=== PATIENT | female | born 1995 | race Caucasian/White ===

== ENCOUNTER 2018-12-29 05:45 | Emergency (ER) | payer BC ==
--- OUTSIDE RECORDS SUMMARY | 2018-12-29 05:47 | XMS REPORT ---
:1995 [facility] [address] [place] [address] Care Team Providers Name Role Phone Unavailable Unavailable Unavailable Problems This patient has no known problems. Allergies, Adverse Reactions, Alerts This patient has no known allergies or adverse reactions. Medications This patient has no known medications.
[2018-12-29] MEDS ORDERED: PROMETHAZINE 25 MG/ML VIAL ONE (06:31)
[2018-12-29] MEDS ORDERED: NA CHLORIDE 0.9% 1,000 ML ONE ×2 (06:31→07:25)
[2018-12-29 06:53] LABS: Absolute Lymphocytes (CBC) 1.4 K/uL (0.7-4.9); Absolute Monocytes 1.3 K/uL (0.1-1.3); Basophils % 0.2 % (0-1.3); Eosinophils % 2.1 % (0-4.4); Hematocrit 43.1 % (36.0-45.0); Lymphocytes % 8.2 % (15.3-44.8); MPV 7.9 fL (7.6-11.3); Monocytes % 7.6 % (3.3-12.3); RBC Red Blood Cell Count 4.81 M/uL (3.86-4.86)
[2018-12-29 07:01] LABS: Bilirubin Direct 0.1 mg/dL (0-0.2); Bilirubin Total 0.6 mg/dL (0.2-1.0); Potassium 3.9 mmol/L (3.5-5.1); Protein, Total 7.6 g/dL (6.4-8.2)
[2018-12-29] MEDS ORDERED: ONDANSETRON 4 MG/2 ML VIAL ONE (07:25)
[2018-12-29] MEDS ORDERED: KETOROLAC 30 MG/ML INJ ONE (07:25)
--- NOTE | 2018-12-29 08:11 | RAD REPORT ---
EXAM DESCRIPTION: US - Abdomen Exam Limited - 12/29/2018 8:02 am CLINICAL HISTORY: Abdominal pain COMPARISON: None. FINDINGS: No gallstones, sludge or other abnormalities within the gallbladder lumen. There is no wal l thickening or pericholecystic fluid. No common duct stone or biliary tree dilatation identified. Partially imaged liver shows fatty infiltration. IMPRESSION: Normal gallbladder and biliary tree ultrasound. Fatty infiltration seen in a partially imaged liver.
--- NOTE | 2018-12-29 09:25 | EDPHYS ---
[facility] Name[facility] Albania Grant Age: 23 yrs Sex: Female : 1995 Arrival Date: 12/29/2018 Time: 05:49 Bed 13 Private MD: ED Physician HPI: 12/29 06:10 This 23 yrs old Female presents to ER via Ambulatory with complaints of snw Vomiting/Diarrhea. 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 - Social history:: Smoking status: Patient/guardian denies using tobacco, Patient uses alcohol, only on a social basis. - Ebola Screening: : No symptoms or risks identified at this time. ROS: 06:10 Constitutional: Negative for fever, chills, and weight loss, Eyes: Negative for injury, snw pain, redness, and discharge, ENT: Negative for injury, pain, and discharge, Neck: Negative for injury, pain, and swelling, Cardiovascular: Negative for chest pain, palpitations, and edema, Respiratory: Negative for shortness of breath, cough, wheezing, and pleuritic chest pain, Back: Negative for injury and pain, : Negative for injury, bleeding, discharge, and swelling, MS/Extremity: Negative for injury and deformity, Skin: Negative for injury, rash, and discoloration, Neuro: Negative for headache, weakness, numbness, tingling, and seizure. 06:10 Abdomen/GI: Positive for abdominal pain, nausea and vomiting. Exam: 06:09 Head/Face: Normocephalic, atraumatic. Eyes: Pupils equal round and reactive to light, snw extra-ocular motions intact. Lids and lashes normal. Conjunctiva and sclera are non-icteric and not injected. Cornea within normal limits. Periorbital areas with no swelling, redness, or edema. ENT: Nares patent. No nasal discharge, no septal abnormalities noted. Tympanic membranes are normal and external auditory canals are clear. Oropharynx with no redness, swelling, or masses, exudates, or evidence of obstruction, uvula midline. Mucous membranes moist. Neck: Trachea midline, no thyromegaly or masses palpated, and no cervical lymphadenopathy. Supple, full range of motion without nuchal rigidity, or vertebral point tenderness. No Meningismus. Chest/axilla: Normal chest wall appearance and motion. Nontender with no deformity. No lesions are appreciated. 06:09 Respiratory: Lungs have equal breath sounds bilaterally, clear to auscultation and percussion. No rales, rhonchi or wheezes noted. No increased work of breathing, no retractions or nasal flaring. 06:09 Back: No spinal tenderness. No costovertebral tenderness. Full range of motion. MS/ Extremity: Pulses equal, no cyanosis. Neurovascular intact. Full, normal range of motion. Neuro: Awake and alert, GCS 15, oriented to person, place, time, and situation. Cranial nerves II-XII grossly intact. Motor strength 5/5 in all extremities. Sensory grossly intact. Cerebellar exam normal. Normal gait. Psych: Awake, alert, with orientation to person, place and time. Behavior, mood, and affect are within normal limits. 06:09 Constitutional: The patient appears alert, anxious, pale, uncomfortable. 06:09 Cardiovascular: Rate: tachycardic, Rhythm: regular, Pulses: no pulse deficits are appreciated, Heart sounds: normal. 06:09 Abdomen/GI: Inspection: abdomen appears normal, Bowel sounds: hyperactive, Palpation: abdomen is soft and non-tender. 06:09 Skin: Appearance: Color: pale, Temperature: cool, Moisture: dry. Vital Signs: 05:50 BP 139 / 79; Pulse 74; Resp 16; Temp 97.9(O); Pulse Ox 99% on R/A; Weight 99.79 kg (R); jb4 Height 5 ft. 9 in. (175.26 cm) (R); Pain 10/10; 07:00 BP 120 / 83; Pulse 67; Resp 16; Pulse Ox 98% on R/A; Pain 10/10; rb1 08:00 BP 107 / 46; Pulse 60; Resp 17; Pulse Ox 98% on R/A; Pain 0/10; rb1 09:00 BP 108 / 53; Pulse 64; Resp 16; Pulse Ox 97% on R/A; rb1 09:50 BP 115 / 59; Pulse 67; Resp 17; Pulse Ox 98% on R/A; rb1 05:50 Body Mass Index 32.49 (99.79 kg, 175.26 cm) jb4 MDM: 06:04 Patient medically screened. snw 06:11 Differential diagnosis: Nonspecific abd pain, gastritis, cholecystitis, pancreatitis, snw viral gastroenteritis. Data reviewed: vital signs, nurses notes. Data interpreted: Pulse oximetry: on room air is 99 %. Interpretation: normal. Counseling: I had a detailed discussion with the patient and/or guardian regarding: the historical points, exam findings, and any diagnostic results supporting the discharge/admit diagnosis, the presence of at least one elevated blood pressure reading (>120/80) during this emergency department visit. 08:20 Response to treatment: the patient's symptoms have mildly improved after treatment. snw Awaiting: IVF infusion. 12/29 06:03 Order name: Basic Metabolic Panel; Complete Time: 07:03 w 12/29 06:03 Order name: CBC with Diff; Complete Time: 07:03 snw 12/29 06:03 Order name: Creatinine for Radiology; Complete Time: 07:03 snw 12/29 06:03 Order name: Hepatic Function; Complete Time: 07:03 snw 12/29 06:03 Order name: Lipase; Complete Time: 07:03 snw 12/29 06:03 Order name: Urine Culture [facility] 12/29 06:03 Order name: Urine Microscopic Only w 12/29 06:09 Order name: [place] Screen Profile; Complete Time: 08:21 sn 12/29 06:38 Order name: Test, Serum; Complete Time: 07:03 4 12/29 07:04 Order name: US Abdomen Limited; Complete Time: 08:18 snw 12/29 10:24 Order name: Urine Dipstick--Ancillary (enter results) em1 12/29 06:03 Order name: IV Saline Lock; Complete Time: 06:16 snw 12/29 06:03 Order name: Labs collected and sent; Complete Time: 06:16 snw 12/29 06:03 Order name: Urine Dipstick-Ancillary (obtain specimen); Complete Time: 10:05 snw Administered Medications: 06:22 Drug: NS 0.9% 1000 ml Route: IV; Rate: 1 bolus; Site: right antecubital; jb4 07:20 Follow up: IV Status: Completed infusion rb1 06:23 Drug: Phenergan 12.5 mg {Note: Given IVP over 3-5 minutes per protocol.} Route: IVP; jb4 Site: right antecubital; 07:01 Follow up: Response: No adverse reaction; Nausea is decreased jb4 07:20 Drug: TORadol - Ketorolac 15 mg Route: IVP; Site: right antecubital; rb1 07:35 Follow up: Response: No adverse reaction; Pain is decreased rb1 07:20 Drug: NS 0.9% 1000 ml Route: IV; Rate: 1 bolus; Site: right antecubital; rb1 08:44 Follow up: IV Status: Completed infusion rb1 07:20 Drug: Zofran 4 mg Route: IVP; Site: right antecubital; rb1 07:35 Follow up: Response: No adverse reaction; Nausea is decreased rb1 Disposition: 15:08 Co-signature as Attending Physician, Shayan Barrios MD Available for consultation at ps1 all times. Disposition: 12/29/18 09:23 Discharged to Home. Impression: Infectious mononucleosis, unspecified, Vomiting, Diarrhea, unspecified, Volume depletion. - Condition is Stable. - Discharge Instructions: Food Choices to Help Relieve Diarrhea, Adult, Dehydration, Adult, Diarrhea, Adult, Infectious Mononucleosis, Nausea and Vomiting, Adult, Rehydration, Adult. - Prescriptions for promethazine 25 mg Oral Tablet - take 1 tablet by ORAL route every 6 hours As needed; 20 tablet. - Work release form, Medication Reconciliation Form, Thank You Letter, Antibiotic Education, Prescription Opioid Use form. - Follow up: Private Physician; When: 2 - 3 days; Reason: Recheck today's complaints, Continuance of care, Re-evaluation by your physician. Follow up: Emergency Department; When: As needed; Reason: Worsening of condition. Signatures: Dispatcher [employer] Jazmyn Green FNP-C FNP-Leonardo Deng em1 Marisela Mackay, RN RN rb1 Mark Bronson RN RN jb4 Shayan Barrios MD MD ps1 Corrections: (The following items were deleted from the chart) 07:07 06:03 Urine Test ordered. yahir jb4 10:07 09:23 12/29/2018 09:23 Discharged to Home. Impression: Infectious mononucleosis, rb1 unspecified; Vomiting; Diarrhea, unspecified; Volume depletion. Condition is Stable. Discharge Instructions: Food Choices to Help Relieve Diarrhea, Adult, Dehydration, Adult, Diarrhea, Adult, Infectious Mononucleosis, Nausea and Vomiting, Adult, Rehydration, Adult. Prescriptions for promethazine 25 mg Oral Tablet - take 1 tablet by ORAL route every 6 hours As needed; 20 tablet. and Forms are Work release form, Medication Reconciliation Form, Thank You Letter, Antibiotic Education, Prescription Opioid Use. Follow up: Private Physician; When: 2 - 3 days; Reason: Recheck today's complaints, Continuance of care, Re-evaluation by your physician. Follow up: Emergency Department; When: As needed; Reason: Worsening of condition. yahir 10:25 10:07 12/29/2018 09:23 Discharged to Home. Impression: Infectious mononucleosis, em1 unspecified; Vomiting; Diarrhea, unspecified; Volume depletion. Condition is Stable. Discharge Instructions: Food Choices to Help Relieve Diarrhea, Adult, Dehydration, Adult, Diarrhea, Adult, Infectious Mononucleosis, Nausea and Vomiting, Adult, Rehydration, Adult. Prescriptions for promethazine 25 mg Oral Tablet - take 1 tablet by ORAL route every 6 hours As needed; 20 tablet. and Forms are Work release form, Medication Reconciliation Form, Thank You Letter, Antibiotic Education, Prescription Opioid Use. Follow up: Private Physician; When: 2 - 3 days; Reason: Recheck today's complaints, Continuance of care, Re-evaluation by your physician. Follow up: Emergency Department; When: As needed; Reason: Worsening of condition. rb1
--- NOTE | 2018-12-29 09:25 | ER ---
Nurse's Notes [facility] Name: Albania Grant Age: 23 yrs Sex: Female : 1995 Arrival Date: 12/29/2018 Time: 05:49 Bed 13 Private MD: Diagnosis: Infectious mononucleosis, unspecified;Vomiting;Diarrhea, unspecified;Volume depletion Presentation: 12/29 05:50 Presenting complaint: Patient states: Starting at 0500 I began vomiting and having jb4 diarrhea, along with upper abdominal pain and a headache. I took Phenergan at about 0530. 05:50 Transition of care: patient was not received from another setting of care. Onset of jb4 symptoms was December 29, 2018. Risk Assessment: Do you want to hurt yourself or someone else? Patient reports no desire to harm self or others. Initial Sepsis Screen: Does the patient meet any 2 criteria? No. Patient's initial sepsis screen is negative. Does the patient have a suspected source of infection? No. Patient's initial sepsis screen is negative. Care prior to arrival: None. 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 - Social history:: Smoking status: Patient/guardian denies using tobacco, Patient uses alcohol, only on a social basis. - Ebola Screening: : No symptoms or risks identified at this time. Screenin:12 Abuse screen: Denies threats or abuse. Nutritional screening: No deficits noted. jb4 Tuberculosis screening: No symptoms or risk factors identified. Fall Risk IV access (20 points). Total Cameron Fall Scale indicates No Risk (0-24 pts). Assessment: 06:12 General: Appears in no apparent distress. uncomfortable, Behavior is calm, cooperative, jb4 appropriate for age. Pain: Complains of pain in abdomen Pain does not radiate. Pain currently is 10 out of 10 on a pain scale. Quality of pain is described as Punching, twisting, stabbing Pain began 1 hour ago. Is continuous. Neuro: Level of Consciousness is awake, alert, obeys commands, Oriented to person, place, time, situation. Cardiovascular: Patient's skin is warm and dry. Respiratory: Airway is patent Respiratory effort is even, unlabored, Respiratory pattern is regular, symmetrical. GI: Abdomen is non-distended, obese, Bowel sounds present X 4 quads. Abd is soft X 4 quads Abdomen is tender to palpation X 4 quads. : No signs and/or symptoms were reported regarding the genitourinary system. EENT: No signs and/or symptoms were reported regarding the EENT system. Derm: Skin is intact, Skin is pink, warm \T\ dry. Musculoskeletal: Circulation, motion, and sensation intact. 07:00 General: Appears uncomfortable, Behavior is calm, cooperative. Pain: Complains of pain rb1 in abdomen Pain currently is 10 out of 10 on a pain scale. Neuro: Level of Consciousness is awake, alert, obeys commands, Oriented to person, place, time, situation. Cardiovascular: Capillary refill < 3 seconds is brisk in bilateral fingers. Respiratory: Airway is patent Respiratory effort is even, unlabored, Respiratory pattern is regular, symmetrical. GI: Reports nausea. Derm: Skin is pink, warm \T\ dry. 08:00 Reassessment: Patient appears in no apparent distress at this time. Pt. is resting with rb1 eyes closed, respirations even, unlabored. Call light within reach. Family at bedside. 09:00 Reassessment: Patient appears in no apparent distress at this time. Patient and/or rb1 family updated on plan of care and expected duration. Pain level reassessed. Patient is alert, oriented x 3, equal unlabored respirations, skin warm/dry/pink. 09:55 Reassessment: No changes from previously documented assessment. Pt. is talking with rb1 family at bedside. 10:03 Reassessment: Pt. is giving us a urine specimen before discharge. rb1 Vital Signs: 05:50 BP 139 / 79; Pulse 74; Resp 16; Temp 97.9(O); Pulse Ox 99% on R/A; Weight 99.79 kg (R); jb4 Height 5 ft. 9 in. (175.26 cm) (R); Pain 10/10; 07:00 BP 120 / 83; Pulse 67; Resp 16; Pulse Ox 98% on R/A; Pain 10/10; rb1 08:00 BP 107 / 46; Pulse 60; Resp 17; Pulse Ox 98% on R/A; Pain 0/10; rb1 09:00 BP 108 / 53; Pulse 64; Resp 16; Pulse Ox 97% on R/A; rb1 09:50 BP 115 / 59; Pulse 67; Resp 17; Pulse Ox 98% on R/A; rb1 05:50 Body Mass Index 32.49 (99.79 kg, 175.26 cm) jb4 ED Course: 05:49 Patient arrived in ED. es 05:50 Arm band placed on left wrist. jb4 06:00 Mark Bronson RN is Primary Nurse. jb4 06:01 Triage completed. jb4 06:02 Jazmyn Deleon [facility]-C [facility]. snw 06:02 Shayan Barrios MD is Attending Physician. snw 06:12 Patient has correct armband on for positive identification. Placed in gown. Bed in low jb4 position. Call light in reach. Side rails up X2. Pulse ox on. NIBP on. 06:12 Initial lab(s) drawn, by me, sent to lab. Inserted saline lock: 20 gauge in right jb4 antecubital area, using aseptic technique. Blood collected. 06:38 [place] Screen Profile Sent. jb4 06:38 Basic Metabolic Panel Sent. jb4 06:39 CBC with Diff Sent. jb4 06:39 Creatinine for Radiology Sent. jb4 06:39 Hepatic Function Sent. jb4 06:39 Lipase Sent. jb4 07:06 Report given to TINY Antonio. jb4 07:10 Marisela Mackay, RN is Primary Nurse. rb1 07:45 Ultrasound completed. Patient tolerated well. Notified WEFT STRAIGHTENER/IAN dwyer. sg3 08:01 US Abdomen Limited In Process Unspecified. EDMS 09:56 No provider procedures requiring assistance completed. IV discontinued, intact, rb1 bleeding controlled, No redness/swelling at site. Pressure dressing applied. 10:23 Primary Nurse role handed off by Marisela Mackay RN em1 10:23 Attending Physician role handed off by Shayan Barrios MD em1 Administered Medications: 06:22 Drug: NS 0.9% 1000 ml Route: IV; Rate: 1 bolus; Site: right antecubital; jb4 07:20 Follow up: IV Status: Completed infusion rb1 06:23 Drug: Phenergan 12.5 mg {Note: Given IVP over 3-5 minutes per protocol.} Route: IVP; jb4 Site: right antecubital; 07:01 Follow up: Response: No adverse reaction; Nausea is decreased jb4 07:20 Drug: TORadol - Ketorolac 15 mg Route: IVP; Site: right antecubital; rb1 07:35 Follow up: Response: No adverse reaction; Pain is decreased rb1 07:20 Drug: NS 0.9% 1000 ml Route: IV; Rate: 1 bolus; Site: right antecubital; rb1 08:44 Follow up: IV Status: Completed infusion rb1 07:20 Drug: Zofran 4 mg Route: IVP; Site: right antecubital; rb1 07:35 Follow up: Response: No adverse reaction; Nausea is decreased rb1 Outcome: 09:23 Discharge ordered by . snw 09:56 Discharged to home ambulatory, with family. rb1 09:56 Condition: stable 09:56 Discharge instructions given to patient, Instructed on discharge instructions, follow up and referral plans. medication usage, Demonstrated understanding of instructions, follow-up care, medications, Prescriptions given X 1. 10:07 Patient left the ED. rb1 10:25 Patient left the ED. em1 Signatures: Dispatcher [employer] EDMS Jazmyn Deleon, SHRUTI [employer] INTERN-Mariela Choe Eric em1 Marisela Mackay RN RN rb1 Mark Bronson RN RN jb4 Ragini Mcginnis sg3 Corrections: (The following items were deleted from the chart) 06:06 05:50 Presenting complaint: Patient states: Starting at 0500 I began vomiting and jb4 having diarrhea, along with upper abdominal pain and a headache. jb4
[2018-12-29 10:31] LABS: Urine Bacteria >50 /HPF (<20); Urine Culture Reflex Order NOT NEEDED; Urine RBC <5 /HPF (NONE SEEN)
[2018-12-29 10:32] LABS: Urine Blood NEGATIVE (NEG); Urine Glucose NEGATIVE (NEG); Urine Protein NEGATIVE (NEG); Urine Specific Gravity 1.025 (1.005-1.030); Urine pH 5.5 (5.0-7.0)
== END 2018-12-29 10:25 | disposition home or self-care (01) ==
LOC: ER 05:45
DX: B27.90 Infectious mononucleosis, unspecified without complication (principal); Z88.0 Allergy status to penicillin; Z88.2 Allergy status to sulfonamides
CPT/HCPCS: 36415; 76705; 80048; 80076; 81003; 81015; 83690; 84703; 85025; 86308; 87086; 87088; 96361; 96374; 96375; 99284; J2405; J2550; J7030